=== PATIENT | male | born 1960 ===

== ENCOUNTER → 2021-11-11 11:44 | Outpatient (CLI) | payer BC, SELFPAY ==
--- NOTE | ~2021-11-11 | CT_ITS ---
EXAMINATION: CT diagnostic chest w con DATE: 11/11/2021 12:10 INDICATION: Cough, abnormal chest radiograph at outside hospital TECHNIQUE: Transaxial computed tomographic images of the chest were obtained after the administration of 75 cc of Omnipaque 350 intravenous contrast. The dose-length product (DLP) was 187.20 mGy-cm. Ite rative reconstruction was used. COMPARISON: None FINDINGS: There is a 3.4 x 2.3 cm spiculated mass of the right upper lobe. There are innumerable smal l pulmonary nodules scattered throughout all lobes of the lungs. In addition, there are airspace opac ities, worst in the mid and lower lung zones. There is no pleural effusion or pneumothorax. There is right hilar lymphadenopathy. The heart size is normal. There is mild thoracic spondylosis. IMPRESSION: 1. Spiculated mass of the right upper lobe concerning for primary bronchogenic carcinoma. CT-guided b iopsy is recommended. 2. Innumerable widespread pulmonary nodules throughout all lobes of the lungs with some areas of supe rimposed airspace opacity, consistent with metastatic disease and/or infection/inflammation. 3. Right hilar lymphadenopathy, metastatic disease versus reactive. Reviewed, dictated and finalized at location A. IMPRESSION: 1. Spiculated mass of the right upper lobe concerning for primary bronchogenic carcinoma. CT-guided biopsy is recommended. 2. Innumerable widespread pulmonary nodules throughout all lobes of the lungs w ith some areas of superimposed airspace opacity, consistent with metastatic dis ease and/or infection/inflammation. 3. Right hilar lymphadenopathy, metastatic disease versus reactive.
[2021-11-11 12:01] LABS: Estimated Glomerular Filt Rate > 60
== END ==
PROVIDERS: PCP Family Medicine; Visit Provider Family Medicine
DX: R05.9 Cough, unspecified (principal); R91.8 Other nonspecific abnormal finding of lung field
CPT/HCPCS: 71260; Q9967